=== PATIENT | female | born 1985 | race Caucasian/White ===

== ENCOUNTER → 2023-06-19 | Outpatient (REF) | payer OTHER | LOC: US 10:46 | PROVIDERS: ATTEND Family Medicine | DX: R10.9 Unspecified abdominal pain (principal); R10.32 Left lower quadrant pain; S39.011A Strain of muscle, fascia and tendon of abdomen, initial encounter; Z02.6 Encounter for examination for insurance purposes | CPT/HCPCS: 76700; 76856 ==